=== PATIENT | female | born 1955 | race African-American/Black ===

== ENCOUNTER 2018-02-09 10:52 | Emergency (ER) | payer MEDICARE, MEDICAID ==
[~2018-02-09] VITALS: Ht 162.6 cm; Wt 76.0 kg
[2018-02-09 11:20] VITALS: BP 145/67
== END 2018-02-09 14:26 | disposition home or self-care (01) ==
LOC: ER 13:06
DX: S93.402A Sprain of unspecified ligament of left ankle, initial encounter (principal); S06.891A Other specified intracranial injury with loss of consciousness of 30 minutes or less, initial encounter; M25.571 Pain in right ankle and joints of right foot; M25.562 Pain in left knee; M25.561 Pain in right knee; R07.89 Other chest pain; I10 Essential (primary) hypertension; W10.8XXA Fall (on) (from) other stairs and steps, initial encounter; Y93.89 Activity, other specified; Y92.89 Other specified places as the place of occurrence of the external cause
CPT/HCPCS: 70450; 73610; 99284

== ENCOUNTER 2018-10-01 14:16 | Inpatient (IN) | payer MEDICARE, OTHER ==
[~2018-10-01] VITALS: Ht 157.5 cm; Wt 92.5 kg
[2018-10-01] MEDS ORDERED: ONDANSETRON HCL 4MG/2ML INJ IV STA (15:37)
[2018-10-01] MEDS ORDERED: MORPHINE SULFATE 4 MG/ML CPJ (NOT FOR IM USE) IV STA (15:37)
[2018-10-01 16:55] LABS: HEMATOCRIT. 34.8 % (36.0-48.0); HEMOGLOBIN. 11.3 g/dL (12.0-16.0); MEAN CORPUSCULAR HEMOGLOBIN 28.5 pg (28.0-32.0); MEAN CORPUSCULAR VOLUME 87.9 fL (81.0-99.0); MEAN PLATELET VOLUME 8.6 fl (7.4-10.4); PLATELET 280 x1000/uL (130-400); RED BLOOD CELL COUNT 3.96 mill/uL (4.2-5.4); RED CELL DISTRIBUTION WIDTH 14.1 % (11.6-14.6)
[2018-10-01 16:58] LABS: CHLORIDE 105 mEq/L (98-107)
[2018-10-01 17:57] LABS: PLATELET ESTIMATE NORMAL
[2018-10-01 18:11] LABS: CLARITY URINE CLOUDY (CLEAR); COLOR URINE YELLOW (YELLOW); KETONES URINE 2+ (NEGATIVE); LEUKOCYTE ESTERASE URINE NEGATIVE (NEGATIVE); NITRITE URINE NEGATIVE (NEGATIVE); OCCULT BLOOD URINE 1+ (NEGATIVE); PROTEIN URINE TRACE (NEGATIVE); SPECIFIC GRAVITY URINE 1.021 (1.005-1.030); UROBILINOGEN URINE 0.2 E.U./dL (0.2-1.0)
[2018-10-01] MEDS ORDERED: TAMSULOSIN HCL 0.4MG SR CAPSULE PO ONE (18:45)
[2018-10-01] MEDS ORDERED: IBUPROFEN 600MG TABLET PO PRN (19:00)
[2018-10-02] VITALS: BP 166/56
[2018-10-02] MEDS ORDERED: LOSA25TA12 MT (02:10)
[2018-10-02] MEDS ORDERED: DIPHENHYDRAMINE 50MG/ML VIAL IV PRN (02:45)
[2018-10-02] MEDS ORDERED: ACETAMINOPHEN 325MG TABLET PO PRN (02:45)
[2018-10-02] MEDS ORDERED: CLONIDINE 0.1MG TABLET PO PRN (02:45)
[2018-10-02] MEDS ORDERED: ONDANSETRON HCL 4MG/2ML INJ IV PRN (02:45)
[2018-10-02] MEDS ORDERED: SODIUM CHLORIDE 0.9% 1,000 ML IV SCH (03:30)
[2018-10-02 04:00] VITALS: BP 155/60
[2018-10-02 08:00] VITALS: BP 159/61
[2018-10-02] MEDS ORDERED: TAMSULOSIN HCL 0.4MG SR CAPSULE PO SCH (09:00)
[2018-10-02] MEDS ORDERED: LOSARTAN POTASSIUM 25 MG TABLET PO SCH (09:00)
[2018-10-02 12:00] VITALS: BP 150/80
[2018-10-02 16:00] VITALS: BP 155/61
[2018-10-02 16:36] VITALS: BP 150/80
== END 2018-10-02 17:23 | disposition home or self-care (01) | DRG 694 ==
LOC: ER 14:31 → 6EST 18:53 → ENRESERV 22:27
PROVIDERS: ADMIT Internal Medicine; ATTEND Internal Medicine
DX: N13.2 Hydronephrosis with renal and ureteral calculous obstruction (principal); I10 Essential (primary) hypertension; Z83.3 Family history of diabetes mellitus; Z82.49 Family history of ischemic heart disease and other diseases of the circulatory system
CPT/HCPCS: 36415; 71045; 74176; 83880; 84484; 93005; 96374; 96375; 99285; J2270; J2405; J7030